=== PATIENT | male | born 1980 | race Caucasian/White ===

== ENCOUNTER 2017-09-16 22:51 | Emergency (ER) | payer OTHER ==
[~2017-09-16] VITALS: Ht 185.4 cm; Wt 167.8 kg
[2017-09-17 00:04] LABS: Influenza A Negative (NEGATIVE); Influenza B Negative (NEGATIVE)
== END 2017-09-17 01:07 | disposition home or self-care (01) ==
LOC: ER 22:51
PROVIDERS: Emergency Medicine
DX: J06.9 Acute upper respiratory infection, unspecified (principal)
CPT/HCPCS: 87804; 99283

== ENCOUNTER → 2018-03-04 | Outpatient (CLI) | payer OTHER | LOC: LAB 11:58 → LAB SHORT 11:58 | DX: L02.414 Cutaneous abscess of left upper limb (principal) | CPT/HCPCS: 87070; 87075; 87077; 87147; 87186; 87205 ==